=== PATIENT | male | born 1950 | race Two or more races ===

== ENCOUNTER 2017-09-26 23:20 | Emergency (ER) | payer MEDICARE, MEDICAID ==
[~2017-09-26] VITALS: Ht 175.3 cm; Wt 86.2 kg
[2017-09-26 22:20] VITALS: BP 126/75
[2017-09-26] MEDS ORDERED: Tylenol #3 tab (300mg/30mg) ORAL ONE (23:45)
--- NOTE | 2017-09-27 00:25 | Emergency Room Report ---
History of Present Illness General Chief Complaint: Lower Extremity Injury Source: Patient Present Illness HPI 67-year-old male brought in with pain to left knee States he fell on it twice a week ago Went to [facility] ER, was told he has "hairline fracture." Patient states no splint was placed No pain with walkin He has Cole bandage wrapped around jeans Also complaining of hernia to right groin - denies any acute pain, redness or swelling to area. Denies nausea, vomiting, constipation States was given followup for her Gen. surgery outpatient but has not followed up because "Im lazy". Allergies: Coded Allergies: TETRACYCLINES (Verified Allergy, Unknown, 09/26/17) Patient History Past Medical History: other - right sided groin hernia, blind in left eye Past Surgical History: none Pertinent Family History: none Social History: Denies: smoking, alcohol use, drug use Immunizations: UTD Reviewed Nursing Documentation: PMH: Agreed, PSxH: Agreed Review of Systems All Other Systems: negative except mentioned in HPI Physical Exam Vital Signs Date Time Temp Pulse Resp B/P (MAP) Pulse Ox O2 Delivery O2 Flow Rate FiO2 09/26/17 22:14 98.8 68 20 126/75 99 Room Air Sp02 EP Interpretation: reviewed, normal General Appearance: normal inspection, well appearing, no apparent distress, alert, GCS 15, non-toxic, other - eating multiple sandwiches in stretcher Head: normocephalic, atraumatic ENT: normal ENT inspection, hearing grossly normal, normal voice Neck: normal inspection, full range of motion, supple, no bony tend Respiratory: normal inspection, lungs clear, normal breath sounds, no respiratory distress, no retraction, no wheezing Cardiovascular #1: regular rate, rhythm, no edema Gastrointestinal: normal inspection, normal bowel sounds, non tender, soft, no guarding, no hernia, other - Right groin hernia: No overlying erythema, easily reduced. Non-tender Genitourinary: no CVA tenderness Musculoskeletal: normal inspection, back normal, normal range of motion, Kim' s Sign negative, other - no obvious trauma to left knee or lower leg. No patella tenderness. Mild tenderness to proximal tibia. rom intact Neurologic: normal inspection, alert, oriented x3, responsive, hand sewer shoes III-XII nml as tested, motor strength/tone normal, speech normal Psychiatric: normal inspection, judgement/insight normal, mood/affect normal Skin: normal inspection, normal color, no rash Medical Decision Making Diagnostic Impression: Primary Impression: Left leg pain Additional Impression: Right groin hernia ER Course Right groin hernia - reducible, nontender. Unlikely incarcerated or strangulated. Patient heart he has followup for outpatient general surgery. Advised importance of followup. Left knee pain: No acute fracture or dislocation on tib-fib x-rays Cole wrap provided to knee The patient is undomiciled. Continues to express other concerns or symptoms, however clearly malingering for fdc, food. ER course: Patient has remained stable during ED stay. Patient is to be discharged to home. Patient is instructed to follow up with their primary care doctor within 5 days. Strict return precautions discussed with patient such as fever, chills, worsening/severe pain, nausea, vomiting, which may indicate severe illness. Patient verbalizes understanding and agrees with plan. Please note that this Emergency Department Report was dictated using [employer] sorter technology software, occasionally this can lead to erroneous entry secondary to interpretation by the dictation equipment Other X-Ray Diagnostic Results Other X-Ray Diagnostic Results : X-Ray ordered: Right tib/fib # of Views/Limited Vs Complete: 2 View Indication: Pain EP Interpretation: Yes Interpretation: no dislocation, no soft tissue swelling, no fractures Impression: No acute disease Electronically Signed by: Dr Jose Marques MD Last Vital Signs Date Time Temp Pulse Resp B/P (MAP) Pulse Ox O2 Delivery O2 Flow Rate FiO2 09/26/17 22:20 98.8 20 126/75 99 Room Air 09/26/17 22:14 68 Status: improved Disposition: HOME, SELF-CARE JOSE MARQUES M.D. Sep 27, 2017 00:25
[2017-09-27 00:40] VITALS: BP_SYST 112; BP_SYST 126; BP_DIAS 55; BP_DIAS 75
--- NOTE | 2017-09-27 16:13 | Diagnostic Imaging Report ---
Indication: Pain Technique: XRAY LEG LOWER TIB/FIB 2V LEFT Comparison: None Findings: None tibial or fibular fracture. There is age-indeterminate minimally distracted fracture of the patella. Punctate calcifications noted in the soft tissues of the medial calf are noted, of uncertain etiology or clinical significance. Impression: Age-indeterminate minimally distracted fracture of the patella. No tibial or fibular fracture. Findings discussed with emergency room CHRISTY Martinez via telephone conversation on 09/27/17.
--- NOTE | 2017-09-27 16:23 | Emergency Room Report ---
Physical Exam Vital Signs Date Time Temp Pulse Resp B/P (MAP) Pulse Ox O2 Delivery O2 Flow Rate FiO2 09/26/17 22:14 98.8 68 20 126/75 99 Room Air Medical Decision Making Diagnostic Impression: Primary Impression: Left leg pain Additional Impression: Right groin hernia ER Course Addendum: Radiologist called on 09/27 to inform me of a fracture of the patella. Undeterminable age. I attempted to contact the patient so he may return for knee immobilization but he has no contact information available. Last Vital Signs Date Time Temp Pulse Resp B/P (MAP) Pulse Ox O2 Delivery O2 Flow Rate FiO2 09/27/17 00:40 96 16 112/55 100 Room Air 09/27/17 00:40 98.8 Referrals: NOT CHOSEN IPA/,REFERRING (PCP) Patient Instructions: Hernia, Adult, [id number] Additional Instructions: - Please followup with outpatient surgery for repair of right sided groin hernia BANDAR JOHNSON Sep 27, 2017 16:23
== END 2017-09-27 00:40 | disposition home or self-care (01) ==
LOC: EDBD 23:20 → EMR 23:25
DX: S82.002A Unspecified fracture of left patella, initial encounter for closed fracture (principal); W19.XXXA Unspecified fall, initial encounter; Y92.9 Unspecified place or not applicable; K45.8 Other specified abdominal hernia without obstruction or gangrene; H54.40 Blindness, one eye, unspecified eye; Z88.1 Allergy status to other antibiotic agents
CPT/HCPCS: 99283